=== PATIENT | female | born 1945 | race Caucasian/White ===

== ENCOUNTER 2018-09-18 16:35 | Emergency (ER) | payer OTHER ==
[~2018-09-18] VITALS: Ht 167.6 cm; Wt 85.0 kg
[~2018-09-18 16:35] MED LIST: AMLO10TA13; ATOR10TA87 PO; HYDR50TA3 PO; LISI40TA4 PO; POTA8TAB8 PO; VIT1CAPS9 PO
[2018-09-18 17:21] LABS: BASOPHILS % (AUTO) 0.4 % (0-1); EOSINOPHILS # (AUTO) 0.3 X10'3 (0-0.9); EOSINOPHILS % (AUTO) 2.7 % (0-6); HEMATOCRIT 45.3 % (35.0-45.0); HEMOGLOBIN 14.6 g/dl (12.0-16.0); LYMPHOCYTES # (AUTO) 1.7 X10'3 (1.1-4.8); LYMPHOCYTES % (AUTO) 17.4 % (21-51); MEAN CORPUSCULAR HEMOGLOBIN 29.1 PG (27.0-31.0); MEAN CORPUSCULAR HGB CONC 32.2 % (33.0-36.5); MEAN CORPUSCULAR VOLUME 90.5 FL (78-98); MEAN PLATELET VOLUME 8.4 FL (7.4-10.4); MONOCYTES # (AUTO) 0.6 X10'3 (0-0.9); MONOCYTES % (AUTO) 6.6 % (2-12); NEUTROPHILS # (AUTO) 7.1 X10'3 (1.8-7.7); NEUTROPHILS % (AUTO) 72.9 % (42-75); PLATELET COUNT 188 X10'3 (140-440); RED CELL DISTRIBUTION WIDTH 15.3 % (11.5-14.5); WHITE BLOOD COUNT 9.8 X10'3 (4.5-11.0)
[2018-09-18 17:27] VITALS: BP 146/80
[2018-09-18 17:28] LABS: PROTHROMBIN TIME 10.2 SECONDS (9.0-12.0)
[2018-09-18 17:30] LABS: ALANINE AMINOTRANSFERASE 29 U/L (12-78); ALBUMIN 4.1 G/DL (3.4-5.0); ALBUMIN/GLOBULIN RATIO 1.1 (1.1-1.5); ALKALINE PHOSPHATASE 113 IU/L (46-116); ANION GAP 13 (8-16); ASPARTATE AMINO TRANSFERASE 19 U/L (10-37); BILIRUBIN,TOTAL 1.2 MG/DL (0.1-1.0); BLOOD UREA NITROGEN 23 MG/DL (7-18); BUN/CREATININE RATIO 20.4 (6.6-38.0); CALCIUM 9.4 MG/DL (8.5-10.1); CHLORIDE 102 MMOL/L (99-107); CREATININE 1.13 MG/DL (0.40-0.90); GLUCOSE 113 MG/DL (70-104); LIPASE 245 U/L (73-393); POTASSIUM 3.6 MMOL/L (3.5-5.1); SODIUM 139 MMOL/L (135-145); TOTAL CARBON DIOXIDE 24.4 MMOL/L (24-32); TOTAL PROTEIN 7.8 G/DL (6.4-8.2); eGFR 47 ML/MIN
[2018-09-18] MEDS ORDERED: HYDROcodone/acetaminophen 5mg/325mg tablet PO ONE (17:40)
[2018-09-18] MEDS ORDERED: ondansetron 4mg rapidly disintigrating tab PO ONE (17:40)
[2018-09-23] MEDS ORDERED: ALLO300T2 PO (09:21)
[2018-09-23] MEDS ORDERED: UBID50TA3 PO (09:24)
== END 2018-09-18 17:58 | disposition home or self-care (01) ==
LOC: ER 16:35
DX: K80.50 Calculus of bile duct without cholangitis or cholecystitis without obstruction (principal); Z79.899 Other long term (current) drug therapy; Z88.6 Allergy status to analgesic agent
CPT/HCPCS: 36415; 80053; 83690; 85025; 85610; 99283

== ENCOUNTER 2018-09-25 11:28 | Day surgery (SDC) | payer OTHER ==
[~2018-09-25] VITALS: Ht 167.6 cm; Wt 84.8 kg
[~2018-09-25 11:28] MED LIST changes: +ALLO300T2 PO; +UBID50TA3 PO; -VIT1CAPS9 PO; +ceFOXitin 2 GM ADDvantage bag 100 ML IV ONE; +ceFOXitin sod/dextrose 2g/50ml 50 ML IV ONE; +famotidine 20mg tablet PO ONE; +ringers solution, lacted 1,000 ML IV SCH
[2018-09-25 11:30] VITALS: BP 112/76
[2018-09-25 13:16] LABS: BASOPHILS % (AUTO) 0.6 % (0-1); EOSINOPHILS # (AUTO) 0.2 X10'3 (0-0.9); EOSINOPHILS % (AUTO) 2.8 % (0-6); LYMPHOCYTES # (AUTO) 1.8 X10'3 (1.1-4.8); LYMPHOCYTES % (AUTO) 23.4 % (21-51); MEAN CORPUSCULAR HEMOGLOBIN 29.8 PG (27.0-31.0); MEAN CORPUSCULAR HGB CONC 33.5 % (33.0-36.5); MEAN CORPUSCULAR VOLUME 88.9 FL (78-98); MEAN PLATELET VOLUME 8.5 FL (7.4-10.4); MONOCYTES # (AUTO) 0.6 X10'3 (0-0.9); MONOCYTES % (AUTO) 7.5 % (2-12); NEUTROPHILS # (AUTO) 5.1 X10'3 (1.8-7.7); NEUTROPHILS % (AUTO) 65.7 % (42-75); PRE OP HEMATOCRIT 39.7 % (35.0-45.0); PRE OP HEMOGLOBIN 13.3 g/dL (12.0-16.0); PRE OP PLATELET COUNT 162 X10'3 (140-440); RED BLOOD COUNT 4.46 X10'6 (4.20-5.60); RED CELL DISTRIBUTION WIDTH 14.8 % (11.5-14.5)
[2018-09-25 13:27] LABS: ALBUMIN 3.6 G/DL (3.4-5.0); ALBUMIN/GLOBULIN RATIO 1.1 (1.1-1.5); ALKALINE PHOSPHATASE 103 IU/L (46-116); BLOOD UREA NITROGEN 21 MG/DL (7-18); BUN/CREATININE RATIO 22.1 (6.6-38.0); CALCIUM 8.9 MG/DL (8.5-10.1); CHLORIDE 104 MMOL/L (99-107); CREATININE 0.95 MG/DL (0.40-0.90); PRE OP ALT 25 U/L (30-65); PRE OP ANION GAP 10 (8-16); PRE OP AST 16 U/L (10-37); PRE OP BILIRUB, TOTAL 1.1 MG/DL (0.0-1.0); PRE OP GLUCOSE 92 MG/DL (70-104); PRE OP POTASSIUM 3.8 MMOL/L (3.4-5.1); PRE OP SODIUM 140 MMOL/L (135-145); TOTAL CARBON DIOXIDE 26.1 MMOL/L (24-32); TOTAL PROTEIN 6.8 G/DL (6.4-8.2); eGFR 58 ML/MIN
[2018-09-25] MEDS ORDERED: BUPIVAcaine/PF 2.5mg/ml (0.25%) 10ml vial ONE (13:40)
[2018-09-25] MEDS ORDERED: sevoflurane 250ml liquid IH ONE (15:12)
[2018-09-25] MEDS ORDERED: rocuronium 10mg/ml inj IV ONE (15:12)
[2018-09-25] MEDS ORDERED: dexamethasone sod phosphate 10mg/ml inj ONE (15:12)
[2018-09-25] MEDS ORDERED: ketorolac trometh. 30mg/ml inj. ONE (15:12)
[2018-09-25] MEDS ORDERED: neostigmine methylsulfate 1 MG/ML 10ml vial ONE (15:12)
[2018-09-25] MEDS ORDERED: midazolam 2 mg/2 ml injection ONE (15:17)
[2018-09-25] MEDS ORDERED: fentaNYL/PF 50MCG/1 ML 2ML syringe ONE (15:17)
[2018-09-25] MEDS ORDERED: LIDOcaine 1%/PF 5ML 10 MG/ML VIAL ONE (15:20)
[2018-09-25] MEDS ORDERED: propofol inj 20 ML IV ONE (15:20)
[2018-09-25] MEDS ORDERED: ondansetron/PF 4mg/2ml inj ONE (15:28)
[2018-09-25] MEDS ORDERED: ringers solution, lacted 1,000 ML IV SCH (15:37)
[2018-09-25] MEDS ORDERED: proCHLORperazine 10 MG/2 ml inj IV PRN (15:40)
[2018-09-25] MEDS ORDERED: morphine 4 MG/ML inj SYRINge IV PRN ×2 (15:40)
[2018-09-25] MEDS ORDERED: meperidine/PF 25mg/ml syringe IV PRN ×3 (15:40)
[2018-09-25] MEDS ORDERED: ondansetron/PF 4mg/2ml inj IV PRN (15:40)
[2018-09-25] MEDS ORDERED: glycopyrrolate 0.2mg/ml inj ONE ×2 (16:09→16:16)
[2018-09-25 16:10] VITALS: BP 131/79
[2018-09-25 16:20] VITALS: BP 129/79
[2018-09-25 16:30] VITALS: BP 131/81
[2018-09-25] MEDS ORDERED: HYDROcodone/acetaminophen 10/325mg tab PO PRN (16:45)
== END 2018-09-25 17:15 | disposition home or self-care (01) ==
LOC: PAS 11:28
PROVIDERS: ATTEND Surgery
DX: K80.00 Calculus of gallbladder with acute cholecystitis without obstruction (principal); K82.8 Other specified diseases of gallbladder; I10 Essential (primary) hypertension; M10.9 Gout, unspecified; Z86.19 Personal history of other infectious and parasitic diseases; Z90.49 Acquired absence of other specified parts of digestive tract; Z87.891 Personal history of nicotine dependence; Z86.79 Personal history of other diseases of the circulatory system; Z87.09 Personal history of other diseases of the respiratory system; Z72.89 Other problems related to lifestyle; Z88.5 Allergy status to narcotic agent; Z98.890 Other specified postprocedural states; Z79.899 Other long term (current) drug therapy; Z83.6 Family history of other diseases of the respiratory system; Z83.3 Family history of diabetes mellitus
CPT/HCPCS: 36415; 47562; 80053; 85025; J0690; J0694; J1100; J1885; J2001; J2250; J2405; J2704; J2710; J3010; J3490; J7120; A7000

== ENCOUNTER 2023-12-19 09:09 | Outpatient (CLI) | payer MEDICARE ==
[~2023-12-19 09:09] MED LIST changes: -HYDR50TA3 PO; +HYDR50TA4 PO; +LISI40TA13 PO; -LISI40TA4 PO; -ceFOXitin 2 GM ADDvantage bag 100 ML IV ONE; -ceFOXitin sod/dextrose 2g/50ml 50 ML IV ONE; -famotidine 20mg tablet PO ONE; -ringers solution, lacted 1,000 ML IV SCH
[2023-12-19 09:56] LABS: ANION GAP 13 (8-16); BLOOD UREA NITROGEN 19 MG/DL (7-18); CALCIUM 9.2 MG/DL (8.5-10.1); CHLORIDE 103 MMOL/L (99-107); CREATININE 1.27 MG/DL (0.40-0.90); GLUCOSE 100 MG/DL (70-104); POTASSIUM 4.1 MMOL/L (3.5-5.1); SODIUM 138 MMOL/L (135-145); TOTAL CARBON DIOXIDE 21.9 MMOL/L (24-32); eGFR 41 ML/MIN
[2023-12-19 10:04] LABS: ALBUMIN 3.7 G/DL (3.4-5.0)
[2023-12-19] MEDS ORDERED: iohexol 350MG/ML 100ml bottle IV ONE (10:09)
== END 2023-12-19 23:59 | disposition home or self-care (01) ==
LOC: RAD 09:09
PROVIDERS: ATTEND Internal Medicine Interventional Cardiology
DX: I65.23 Occlusion and stenosis of bilateral carotid arteries (principal); E78.5 Hyperlipidemia, unspecified
CPT/HCPCS: 36415; 70498; 80048; J3490; Q9967